=== PATIENT | male | born 1985 | race Caucasian/White ===

== ENCOUNTER 2016-12-20 07:28 | Emergency (ER) | payer BC ==
--- NOTE | 2016-12-20 07:43 | Emergency Department Record ---
History of Present Illness - General Chief Complaint: Shortness of breath Stated Complaint: ALLEN AND HARD TIME BREATHING Time Seen by Provider: 12/20/16 07:36 Source: Patient Mode of Arrival: Ambulatory Limitations: No limitations - History of Present Illness Initial Comments: 31 yo male presents with cough, productive sputum and shortness of breath. He has had associated sore throat. No nausea, vomiting or diarrhea. No rash. His appetite is fairly normal. He has a frontal headache with cough. No FLU shot this year. He fells tired and short of breath with activity. He quit smoking 6 years ago. No blood in the sputum. No current medications. No history of asthma, cardiac or pulmonary disease. MD Complaint: Cough, Shortness of breath Onset/Timin -: Week(s) Consistency: Constant Improves With: Nothing Worsens With: Coughing, Other Associated Symptoms: Cough, Nausea/vomiting, Sputum production Treatments Prior to Arrival: Other - Related Data Previous Rx's Medication Instructions Recorded Azithromycin [Zithromax] 250 mg PO DAILY #4 tab 12/20/16 Allergies Allergy/AdvReac Type Severity Reaction Status Date / Time No Known Drug Allergies Allergy Verified 12/20/16 07:37 Travel Screening - Travel/Exposure Within Last 30 Days Have you traveled within the last 30 days?: No - Travel/Exposure Within Last Year Have you traveled outside the [place] in the last year?: No - Additonal Travel Details Have you been exposed to anyone with a communicable illness?: No - Travel Symptoms Symptom Screening: None Review of Systems Constitutional: Reports: Fever (low grade). Denies: Chills, Malaise, Weakness Eyes: Denies: Eye discharge ENT: Reports: Congestion, Throat pain. Denies: Ear pain Respiratory: Reports: Cough, Dyspnea. Denies: Hemoptysis, Stridor, Wheezes Cardiovascular: Denies: Chest pain, Palpitations, Syncope Endocrine: Denies: Fatigue, Polydipsia Gastrointestinal: Denies: Abdominal pain, Diarrhea, Nausea, Vomiting Musculoskeletal: Denies: Arthralgia, Back pain, Myalgia, Neck pain Skin: Denies: Bruising, Change in color, Rash Neurological: Denies: Confusion, Headache, Numbness, Weakness Psychiatric: Denies: Anxiety Hematological/Lymphatic: Denies: Blood Clots, Easy bleeding, Easy bruising, Swollen glands Past Medical History - SOCIAL HISTORY Smoking Status: Former smoker Alcohol Use: Rare Drug Use: None - RESPIRATORY Hx Respiratory Disorders: No - CARDIOVASCULAR Hx Cardio Disorders: No - NEURO Hx Neuro Disorders: No - GI Hx GI Disorders: No - Hx Genitourinary Disorders: No - ENDOCRINE Hx Endocrine Disorders: No - MUSCULOSKELETAL Hx Musculoskeletal Disorders: No - PSYCH Hx Psych Problems: No - HEMATOLOGY/ONCOLOGY Hx Hematology/Oncology Disorders: No Family Medical History Any Significant Family History?: No Physical Exam - General General Appearance: Alert, Oriented x3, Cooperative, No acute distress Limitations: No limitations - Head Head exam: Atraumatic, Normal inspection - Eye Eye exam: Normal appearance, PERRL. negative: Conjunctival injection, Periorbital swelling - ENT ENT exam: Normal exam, Mucous membranes moist Ear exam: Normal external inspection Nasal Exam: Discharge, Sinus tenderness. negative: Normal inspection Mouth exam: Normal external inspection, Tongue normal Teeth exam: Normal inspection. negative: Dental caries Throat exam: Tonsillar erythema. negative: Tonsillomegaly, Tonsillar exudate, R peritonsillar mass, L peritonsillar mass - Neck Neck exam: Normal inspection, Full ROM. negative: Lymphadenopathy, Tenderness - Respiratory Respiratory exam: Normal lung sounds bilaterally. negative: Accessory muscle use, Chest wall tenderness, Decreased breath sounds, Respiratory distress, Rhonchi, Stridor, Wheezes - Cardiovascular Cardiovascular Exam: Regular rate, Normal rhythm, Normal heart sounds - GI/Abdominal GI/Abdominal exam: Soft. negative: Tenderness - Rectal Rectal exam: Deferred - exam: Deferred - Extremities Extremities exam: Normal inspection, Full ROM, Normal capillary refill. negative: Pedal edema, Tenderness - Back Back exam: Reports: Normal inspection, Full ROM. Denies: CVA tenderness (R), CVA tenderness (L), Muscle spasm, Rash noted, Tenderness - Neurological Neurological exam: Alert, Normal gait, Oriented X3, Reflexes normal - Psychiatric Psychiatric exam: Normal affect, Normal mood - Skin Skin exam: Dry, Intact, Normal color, Warm Course Vital Signs 12/20/16 07:30 Temperature 97.8 F Pulse Rate 90 Respiratory 20 Rate Blood Pressure 133/84 Pulse Ox 98 - Reevaluation(s) Reevaluation #1: The patient was seen and examined He is well appearing, non labored Vitals reviewed. No acute abnormalities Strep,Flu, and CXR ordered 12/20/16 07:45 Reevaluation #2: Strep Negative FLU Negative CXR Negative The patient is well appearing, no hypoxia, no tachycardia He has green sputum Zithromax provided in the ED 12/20/16 08:08 Disposition Disposition: Discharge Clinical Impression: Bronchitis Disposition: Home, Self-Care Condition: (1) Good Instructions: Acute Bronchitis (ED) Additional Instructions: Rest Return if worse, fever, short of breath, pain, or any new concerns. Prescriptions: Azithromycin [Zithromax] 250 mg PO DAILY #4 tab Forms: Patient Portal Access Time of Disposition: 08:10
[2016-12-20 07:57] LABS: STREP A SCREEN NEGATIVE (NEGATIVE)
[2016-12-20 08:04] LABS: INFLUENZA A NEGATIVE (NEGATIVE)
[2016-12-20 08:05] LABS: INFLUENZA B NEGATIVE (NEGATIVE)
[2016-12-20] MEDS ORDERED: AZITHROMYCIN 500 MG TABLET PO ONE (08:09)
--- NOTE | 2016-12-23 14:25 | RADIOLOGY REPORT ---
DATE: 12/20/2016 at 07:50. EXAM: CHEST, TWO VIEWS. HISTORY: Productive cough for one week. Chest pain. TECHNIQUE: Upright PA and lateral views of the chest. COMPARISON: None. FINDINGS: The cardiomediastinal silhouette is normal in size and configuration. The pulmonary vasculature is nondilated. The lungs and pleural spaces are clear. There are mild degenerative endplate changes are scattered within the visualized spine. Minimal levo curvature of the thoracic spine. IMPRESSION: NO CONVINCING RADIOGRAPHIC EVIDENCE OF ACUTE CARDIOPULMONARY DISEASE. JOB NUMBER: [id number] MTDD
== END 2016-12-20 08:23 | disposition home or self-care (01) ==
LOC: ER 07:28
DX: J20.9 Acute bronchitis, unspecified (principal); R11.2 Nausea with vomiting, unspecified; R07.89 Other chest pain; R06.02 Shortness of breath
CPT/HCPCS: 71020; 87400; 87880; 99283